=== PATIENT | male | born 1960 | race Caucasian/White ===

== ENCOUNTER 2021-12-23 07:47 | Emergency (ER) | payer BC ==
[2021-12-23 08:00] VITALS: BP 134/81; PULSE 71; RESP 20; TEMP 97.8
--- NOTE | 2021-12-23 08:12 | ED ---
General Adult HPI - General Chief complaint: Eye Problems Stated complaint: rt eye lid swelling Time Seen by Provider: 12/23/21 08:03 Source: patient, RN notes reviewed Mode of arrival: ambulatory Limitations: no limitations - History of Present Illness Initial comments: Patient is a pleasant 61-year-old male presenting to the emergency Department with right upper lid swelling. Onset of symptoms was yesterday. Patient was using warm compresses and it seemed to decrease a little bit. Swelling has increased again today. No visual change. No eye pain. Patient states there is minimal discomfort of the area, mostly from the swelling. Patient states he does have history of styes many years ago however has not had any in quite a while. No trauma. No fever. - Related Data Previous Rx's Medication Instructions Recorded Erythromycin Ophth Oint [Romycin 1 applic RIGHT EYE QID #3.5 gm 12/23/21 Ophth Oint] Allergies Allergy/AdvReac Type Severity Reaction Status Date / Time Penicillins Allergy Rash/Hives Verified 12/23/21 07:59 Review of Systems ROS Statement: Those systems with pertinent positive or pertinent negative responses have been documented in the HPI. ROS Other: All systems not noted in ROS Statement are negative. Constitutional: Denies: fever Eyes: Reports: as per HPI. Denies: eye pain, vision change ENT: Denies: ear pain Respiratory: Denies: cough Cardiovascular: Denies: chest pain Endocrine: Denies: fatigue Gastrointestinal: Denies: abdominal pain Genitourinary: Denies: dysuria Musculoskeletal: Denies: back pain Skin: Denies: rash Neurological: Denies: weakness Past Medical History Past Medical History: No Reported History History of Any Multi-Drug Resistant Organisms: None Reported Past Surgical History: No Surgical Hx Reported Past Psychological History: No Psychological Hx Reported Smoking Status: Never smoker Past Alcohol Use History: Occasional Past Drug Use History: None Reported General Exam Limitations: no limitations General appearance: alert, in no apparent distress Head exam: Present: normocephalic Eye exam: Present: PERRL, EOMI, other (Right upper eyelid with mild swelling, stye is present) Expanded Eyelids: Stye: Right Pupils: Regular, Round: Bilateral, Reactive: Bilateral Sclera/Conjunctival: Normal Inspection: Bilateral Respiratory exam: Present: normal lung sounds bilaterally Cardiovascular Exam: Present: regular rate, normal rhythm Neurological exam: Present: alert Psychiatric exam: Present: normal affect, normal mood Skin exam: Present: normal color Course Vital Signs 12/23/21 07:58 Temperature 97.8 F Pulse Rate 71 Respiratory 20 Rate Blood Pressure 134/81 O2 Sat by Pulse 97 Oximetry Disposition Clinical Impression: Stye Disposition: HOME SELF-CARE Condition: Stable Instructions (If sedation given, give patient instructions): Eye Lubricant (Into the eye), [place] (ED) Additional Instructions: Prescription for antibiotics ointment has been sent to pharmacy. Continue warm compresses at least 8 times daily until improvement. Please follow-up with primary care physician in the next couple days for recheck. Return for increased swelling, pain, visual change, fevers, worsening or change in symptoms or other concerns. Prescriptions: Erythromycin Ophth Oint [Romycin Ophth Oint] 1 applic RIGHT EYE QID #3.5 gm Is patient prescribed a controlled substance at d/c from ED?: No Referrals: Russ Marcum MD [Primary Care Provider] - 1-2 days Time of Disposition: 08:11
== END 2021-12-23 08:22 | disposition home or self-care (01) ==
LOC: EC 07:47
DX: H00.011 Hordeolum externum right upper eyelid (principal); Z88.0 Allergy status to penicillin
CPT/HCPCS: 99283

== ENCOUNTER 2023-11-01 07:18 | Emergency (ER) | payer BC ==
[2023-11-01 08:01] LABS: Basophils % (A) 1 %; Eosinophils # (A) 0.1 k/uL (0-0.7); Eosinophils % (A) 2 %; HCT 43.2 % (39.0-53.0); HGB 15.5 gm/dL (13.0-17.5); Lymphocytes % (A) 20 %; MCH 31.1 pg (25.0-35.0); MCHC 35.8 g/dL (31.0-37.0); MCV 86.9 fL (80.0-100.0); Mean Platelet Volume 7.3; Monocytes # (A) 0.2 k/uL (0-1.0); Monocytes % (A) 4 %; Neutrophils # (A) 3.6 k/uL (1.3-7.7); Neutrophils % (A) 71 %; Platelet Count 244 k/uL (150-450); RBC 4.97 m/uL (4.30-5.90); RDW 12.4 % (11.5-15.5)
--- NOTE | 2023-11-01 08:03 | ED ---
General Adult HPI - General Chief complaint: Extremity Injury, Upper Stated complaint: L Arm & Leg Pain Time Seen by Provider: 11/01/23 07:26 Source: patient, RN notes reviewed, old records reviewed Mode of arrival: ambulatory Limitations: no limitations - History of Present Illness Initial comments: 63-year-old male presents for evaluation of left shoulder pain. Patient does admit that he has had some pain in the shoulder ongoing for approximately 1 month but had noted that over the past 24 hours this had seemed to change and worsen. There was no specific injury. Patient was concerned that this could be related to his heart. He has no prior history of cardiac disease. He takes no daily medications. He did note that both yesterday and today his blood pressure was elevated which is abnormal for him. No associated vomiting or diaphoresis. No chest pain or dyspnea. - Related Data Previous Rx's Medication Instructions Recorded Erythromycin Ophth Oint [Romycin 1 applic RIGHT EYE QID #3.5 gm 12/23/21 Ophth Oint] Allergies Allergy/AdvReac Type Severity Reaction Status Date / Time Penicillins Allergy Rash/Hives Verified 11/01/23 07:25 Review of Systems ROS Statement: Those systems with pertinent positive or pertinent negative responses have been documented in the HPI. ROS Other: All systems not noted in ROS Statement are negative. Past Medical History Past Medical History: No Reported History Additional Past Medical History / Comment(s): Glaucoma, siatica, History of Any Multi-Drug Resistant Organisms: None Reported Past Surgical History: No Surgical Hx Reported Past Psychological History: No Psychological Hx Reported Smoking Status: Never smoker Past Alcohol Use History: Occasional Past Drug Use History: None Reported General Exam Limitations: no limitations General appearance: alert, in no apparent distress Head exam: Present: atraumatic, normocephalic Eye exam: Present: normal appearance, PERRL ENT exam: Present: normal exam Neck exam: Present: normal inspection. Absent: tenderness, meningismus Respiratory exam: Present: normal lung sounds bilaterally. Absent: respiratory distress, wheezes Cardiovascular Exam: Present: regular rate, normal rhythm GI/Abdominal exam: Present: soft. Absent: distended, tenderness, guarding Extremities exam: Present: normal inspection, normal capillary refill, other (Left radial pulse 2+, left posterior tibial pulse 2+). Absent: pedal edema Neurological exam: Present: alert, oriented X3, CN II-XII intact Psychiatric exam: Present: normal affect, normal mood Skin exam: Present: warm, dry, intact. Absent: cyanosis, diaphoretic Course Vital Signs 11/01/23 11/01/23 07:21 08:34 Temperature 97.8 F 98.2 F Pulse Rate 82 64 Respiratory 18 16 Rate Blood Pressure 166/92 120/78 O2 Sat by Pulse 98 99 Oximetry Medical Decision Making - Medical Decision Making Was pt. sent in by a medical professional or institution (, JESSICA, BLENDER MACHINE OPERATOR, urgent care, hospital, or jail...) When possible be specific @ -No Did you speak to anyone other than the patient for history (EMS, parent, family, police, friend...)? What history was obtained from this source @ -No Did you review nursing and triage notes (agree or disagree)? Why? @ -I reviewed and agree with nursing and triage notes Were old charts reviewed (outside hosp., previous admission, EMS record, old EKG, old radiological studies, urgent care reports/EKG's, jail records)? Report findings @ -No old charts were reviewed Differential Diagnosis (chest pain, altered mental status, abdominal pain women, abdominal pain men, vaginal bleeding, weakness, fever, dyspnea, syncope, headac he, dizziness, GI bleed, back pain, seizure, CVA, palpatations, mental health, musculoskeletal)? @ -Not applicable EKG interpreted by me (3pts min.). @ -Sinus rhythm, artifact in V3, no ST segment elevation, rate of 77, NV interval 159, QRS duration 95, QTc 415 X-rays interpreted by me (1pt min.). @ -Chest x-ray clear, no focal pneumonia, normal cardiac silhouette, no acute findings, x-ray of the left shoulder shows mild arthritis at the AC joint, no other findings noted. CT interpreted by me (1pt min.). @ -None done U/S interpreted by me (1pt. min.). @ -None done What testing was considered but not performed or refused? (CT, X-rays, U/S, labs)? Why? @ -None What meds were considered but not given or refused? Why? @ -None Did you discuss the management of the patient with other professionals (professionals i.e. , JESSICA, BLENDER MACHINE OPERATOR, lab, RT, psych nurse, social media manager, aluminum sheet cutter, teacher, earth science technical officer, disease case manager)? Give summary @ -No Was smoking cessation discussed for >3mins.? @ -No Was critical care preformed (if so, how long)? @ -No Were there social determinants of health that impacted care today? How? (Homelessness, low income, unemployed, alcoholism, drug addiction, transp ortation, low edu. Level, literacy, decrease access to med. care, care home, rehab)? @ -No Was there de-escalation of care discussed even if they declined (Discuss DNR or withdrawal of care, Hospice)? DNR status @ -No What co-morbidities impacted this encounter? (DM, HTN, Smoking, COPD, CAD, Cancer, CVA, ARF, Chemo, Hep., AIDS, mental health diagnosis, sleep apnea, morbid obesity)? @ -None Was patient admitted / discharged? Hospital course, mention meds given and route, prescriptions, significant lab abnormalities, going to OR and other pertinent info. @ -63-year-old male presenting with left shoulder pain and concern this could be related to his heart. EKG is sinus rhythm without ST segment elevation. Patient has normal chest x-ray, shoulder x-ray showing mild arthritis at the AC joint. Laboratory test including CBC, CMP and troponin is unremarkable. Patient is advised of strict return parameters including the development of chest pain, shortness of breath, any new or worsening symptoms. He will follow- up with his primary care provider. Undiagnosed new problem with uncertain prognosis? @ -No Drug Therapy requiring intensive monitoring for toxicity (Heparin, Nitro, Insulin, Cardizem)? @ -No Were any procedures done? @ -No Diagnosis/symptom? @ -[Shoulder pain Acute, or Chronic, or Acute on Chronic? @ -Chronic Uncomplicated (without systemic symptoms) or Complicated (systemic symptoms)? @ -Default Side effects of treatment? @ -No Exacerbation, Progression, or Severe Exacerbation? @ -No Poses a threat to life or bodily function? How? (Chest pain, [place], [place], pneumonia, PE, COPD, DKA, ARF, appy, cholecystitis, CVA, Diverticulitis, Homicidal, Suicidal, threat to staff... and all critical care pts) @ -Low risk at this time - Lab Data Result diagrams: 11/01/23 07:41 11/01/23 07:41 Lab Results 11/01/23 11/01/23 11/01/23 Range/Units 07:41 07:41 07:41 WBC 5.0 (3.8-10.6) k/uL RBC 4.97 (4.30-5.90) m/uL Hgb 15.5 (13.0-17.5) gm/dL Hct 43.2 (39.0-53.0) % MCV 86.9 (80.0-100.0) fL MCH 31.1 (25.0-35.0) pg MCHC 35.8 (31.0-37.0) g/dL RDW 12.4 (11.5-15.5) % Plt Count 244 (150-450) k/uL MPV 7.3 Neutrophils % 71 % Lymphocytes % 20 % Monocytes % 4 % Eosinophils % 2 % Basophils % 1 % Neutrophils # 3.6 (1.3-7.7) k/uL Lymphocytes # 1.0 (1.0-4.8) k/uL Monocytes # 0.2 (0-1.0) k/uL Eosinophils # 0.1 (0-0.7) k/uL Basophils # 0.0 (0-0.2) k/uL PT 11.3 (10.0-12.5) sec INR 1.0 (<1.2) APTT 27.2 (22.0-30.0) sec Sodium 141 (137-145) mmol/L Potassium 4.1 (3.5-5.1) mmol/L Chloride 106 (98-107) mmol/L Carbon Dioxide 25 (22-30) mmol/L Anion Gap 10 mmol/L BUN 13 (9-20) mg/dL Creatinine 0.83 (0.66-1.25) mg/dL Est GFR (CKD-EPI)AfAm >90 (>60 ml/min/1.73 sqM) Est GFR (CKD-EPI)NonAf >90 (>60 ml/min/1.73 sqM) Glucose 111 H (74-99) mg/dL Calcium 10.0 (8.4-10.2) mg/dL Magnesium 2.0 (1.6-2.3) mg/dL Total Bilirubin 0.9 (0.2-1.3) mg/dL AST 26 (17-59) U/L ALT 23 (4-49) U/L Alkaline Phosphatase 81 (38-126) U/L Troponin I (0.000-0.034) ng/mL Total Protein 7.8 (6.3-8.2) g/dL Albumin 5.0 (3.5-5.0) g/dL 11/01/23 Range/Units 07:41 WBC (3.8-10.6) k/uL RBC (4.30-5.90) m/uL Hgb (13.0-17.5) gm/dL Hct (39.0-53.0) % MCV (80.0-100.0) fL MCH (25.0-35.0) pg MCHC (31.0-37.0) g/dL RDW (11.5-15.5) % Plt Count (150-450) k/uL MPV Neutrophils % % Lymphocytes % % Monocytes % % Eosinophils % % Basophils % % Neutrophils # (1.3-7.7) k/uL Lymphocytes # (1.0-4.8) k/uL Monocytes # (0-1.0) k/uL Eosinophils # (0-0.7) k/uL Basophils # (0-0.2) k/uL PT (10.0-12.5) sec INR (<1.2) APTT (22.0-30.0) sec Sodium (137-145) mmol/L Potassium (3.5-5.1) mmol/L Chloride (98-107) mmol/L Carbon Dioxide (22-30) mmol/L Anion Gap mmol/L BUN (9-20) mg/dL Creatinine (0.66-1.25) mg/dL Est GFR (CKD-EPI)AfAm (>60 ml/min/1.73 sqM) Est GFR (CKD-EPI)NonAf (>60 ml/min/1.73 sqM) Glucose (74-99) mg/dL Calcium (8.4-10.2) mg/dL Magnesium (1.6-2.3) mg/dL Total Bilirubin (0.2-1.3) mg/dL AST (17-59) U/L ALT (4-49) U/L Alkaline Phosphatase (38-126) U/L Troponin I <0.012 (0.000-0.034) ng/mL Total Protein (6.3-8.2) g/dL Albumin (3.5-5.0) g/dL Disposition Clinical Impression: Shoulder pain Disposition: HOME SELF-CARE Condition: Good Instructions (If sedation given, give patient instructions): Shoulder Pain (ED) Additional Instructions: Please follow-up with your primary care provider, please return to the emergency department with any worsening or changing symptoms Is patient prescribed a controlled substance at d/c from ED?: No Referrals: Russ Marcum MD [Primary Care Provider] - 1-2 days Time of Disposition: 08:43
--- NOTE | 2023-11-01 08:11 | XR ---
EXAMINATION TYPE: XR chest 2V DATE OF EXAM: 11/01/2023 8:07 AM CLINICAL INDICATION:Male, 63 years old with history of Chest Pain; [facility] COMPARISON: Chest radiographs from 09/13/2010 TECHNIQUE: XR chest 2V Frontal and lateral views of the chest. FINDINGS: Lungs/Pleura: There is no evidence of pleural effusion, focal consolidation, or pneumothorax. Pulmonary vascularity: Unremarkable. Heart/mediastinum: Cardiomediastinal silhouette is unremarkable. Musculoskeletal: No acute osseous pathology. IMPRESSION: No acute cardiopulmonary disease/process.
--- NOTE | 2023-11-01 08:12 | XR ---
EXAMINATION TYPE: XR shoulder complete 3 views LT DATE OF EXAM: 11/01/2023 Comparison: None Clinical History: 63-year-old male pain Findings: Mild/moderate degenerative joint space narrowing and capsular hypertrophy at the acromioclavicular luis e int. Subacromial space is preserved. No tendinous or bursal calcifications. No acute fracture, sublux ation, dislocation. Impression: [id number] AC joint OA. No acute osseous abnormality seen.
[2023-11-01 08:14] LABS: Partial Thromboplastin Time 27.2 sec (22.0-30.0); Prothrombin Time 11.3 sec (10.0-12.5)
[2023-11-01 08:15] LABS: ALT 23 U/L (4-49); AST 26 U/L (17-59); African American GFR (CKD) >90 (>60 ml/min/1.73 sqM); Alkaline Phosphatase 81 U/L (38-126); Anion Gap 10 mmol/L; Blood Urea Nitrogen 13 mg/dL (9-20); Carbon Dioxide 25 mmol/L (22-30); Chloride 106 mmol/L (98-107); Glucose 111 mg/dL (74-99); Non-African American GFR(CKD) >90 (>60 ml/min/1.73 sqM); Potassium 4.1 mmol/L (3.5-5.1); Sodium 141 mmol/L (137-145); Total Bilirubin 0.9 mg/dL (0.2-1.3); Total Protein 7.8 g/dL (6.3-8.2)
[2023-11-01 08:51] VITALS: BP 120/78; PULSE 64; RESP 16; TEMP 98.2
== END 2023-11-01 08:56 | disposition home or self-care (01) ==
LOC: EC 07:18
DX: M19.012 Primary osteoarthritis, left shoulder (principal); Z88.0 Allergy status to penicillin
CPT/HCPCS: 36415; 71046; 80053; 83735; 84484; 85025; 85610; 85730; 93005; 99283; 99284